=== PATIENT | male | born 1945 | race Native Hawaiian/Other Pacific Islander ===

== ENCOUNTER 2016-10-18 12:38 | Inpatient (IN) | payer MEDICARE, OTHER ==
[2016-10-18 12:38] VITALS: BMI 26.5
[2016-10-18] MEDS ORDERED: cefTRIAXone 1 gm 1 GM/100 ML BAG IVPB STA (13:37)
[2016-10-18] MEDS ORDERED: Azithromycin 500MG/NS 250ml 500 MG/250 ML BAG IVPB STA (13:38)
[2016-10-18 13:45] LABS: ADD MANUAL DIFF? NO
[2016-10-18 13:49] LABS: VENOUS BLOOD GAS BASE EXCESS -0.4 mmol/L (0.0-2.0); VENOUS BLOOD PH 7.34 (7.32-7.43)
--- NOTE | 2016-10-18 13:52 | ED PDOC ---
Arrival/HPI - General Chief Complaint: Shortness Of Breath Time Seen by Provider: 10/18/16 13:29 Historian: Patient - History of Present Illness Narrative History of Present Illness (Text): 10/18/16 14:10 A 71 year old male presents to the emergency department complaining of a productive cough for the past 3 days. Patient reports a fever of 102.7, shortness of breath and wheezing but denies chest pain or any other complaints at this time. Patient denies smoking or alcohol use. Patient seen by Dr. Daniel prior to arrival, who sent patient to emergency department. Time/Duration: Other (3 days) Symptom Onset: Sudden Symptom Course: Unchanged Activities at Onset: Rest Associated Symptoms (Text): fever, shortness of breath, wheezing 10/18/16 15:10 Several day history of a productive cough congestion and shortness of breath and fever to 103. Seen in the office today by and sent to the emergency department for evaluation and treatment and admission Past Medical History - Provider Review Nursing Documentation Reviewed: Yes - Infectious Disease Hx of Infectious Diseases: None - Cardiac Hx Cardiac Disorders: Yes Hx Hypertension: Yes - Pulmonary Hx Respiratory Disorders: No - Neurological Hx Neurological Disorder: No - HEENT Hx HEENT Disorder: No - Renal Hx Renal Disorder: No - Endocrine/Metabolic Hx Endocrine Disorders: Yes Hx Diabetes Mellitus Type 2: Yes - Hematological/Oncological Hx Blood Disorders: No - Integumentary Hx Dermatological Disorder: No - Musculoskeletal/Rheumatological Hx Musculoskeletal Disorders: Yes Hx Back Pain: Yes - Gastrointestinal Hx Gastrointestinal Disorders: Yes - Genitourinary/Gynecological Hx Genitourinary Disorders: No - Psychiatric Hx Psychophysiologic Disorder: No Hx Substance Use: No - Surgical History Other/Comment: SPINE SURGERY - Anesthesia Hx Anesthesia: Yes Hx Anesthesia Reactions: No Hx Malignant Hyperthermia: No Family/Social History - Physician Review Nursing Documentation Reviewed: Yes Family/Social History: No Known Family HX Smoking Status: Never Smoked Hx Alcohol Use: No Hx Substance Use: No Allergies/Home Meds Allergies/Adverse Reactions: Allergies aspirin Allergy (Verified 10/18/16 13:07) RASH Home Medications: Home Meds Medication Instructions Recorded Confirmed Atorvastatin [Lipitor] 1 tab PO DAILY 06/14/16 10/18/16 Fenofibrate,Micronized [Lofibra] 1 tab PO DAILY 06/14/16 10/18/16 Losartan [Cozaar] 1 tab PO DAILY 06/14/16 10/18/16 Pioglitazone [Actos] 1 tab PO DAILY 06/14/16 10/18/16 amLODIPine [Norvasc] 1 tab PO DAILY 06/14/16 10/18/16 Azithromycin [Zithromax] 250 mg PO DAILY 10/18/16 10/18/16 Fluticasone/Salmeterol 100/50 1 puff IH DAILY 10/18/16 10/18/16 [Advair Diskus 100/50] Montelukast [Singulair] 10 mg PO DAILY 10/18/16 10/18/16 Review of Systems - Physician Review All systems were reviewed & negative as marked: Yes - Review of Systems Constitutional: Fatigue, Fevers Respiratory: SOB, Cough, Sputum, Wheezing Cardiovascular: absent: Chest Pain, Palpitations, Syncope Gastrointestinal: absent: Abdominal Pain, Diarrhea, Vomiting Neurological: absent: Headache, Dizziness Physical Exam Vital Signs Reviewed: Yes Vital Signs Temp Pulse Resp BP Pulse Ox 10/18/16 16:36 95 H 18 118/70 99 10/18/16 15:00 102.1 F H 10/18/16 14:59 102.1 F H 102 H 19 127/57 L 98 10/18/16 13:58 18 94 L 10/18/16 13:52 102.7 F H 10/18/16 13:05 98.4 F 106 H 21 160/83 H 94 L Temperature: Afebrile Blood Pressure: Hypertensive Pulse: Tachycardic Respiratory Rate: Normal Appearance: Positive for: Well-Appearing, Non-Toxic, Uncomfortable Pain Distress: None Mental Status: Positive for: Alert and Oriented X 3 - Systems Exam Head: Present: Atraumatic, Normocephalic Pupils: Present: PERRL Extroacular Muscles: Present: EOMI Conjunctiva: Present: Normal Ears: Present: NORMAL TM, Normal Canal. No: Erythema Mouth: Present: Moist Mucous Membranes Pharnyx: No: ERYTHEMA, EXUDATE, TONSILS ENLARGED Neck: Present: Normal Range of Motion Respiratory/Chest: Present: Wheezes, Rales, Rhonchi. No: Tender to Palpation Cardiovascular: Present: Tachycardic Abdomen: Present: Normal Bowel Sounds. No: Tenderness, Distention, Peritoneal Signs, Rebound, Guarding Back: Present: Normal Inspection Upper Extremity: Present: Normal Inspection. No: Cyanosis, Edema Lower Extremity: Present: Normal Inspection. No: Edema Neurological: Present: GCS=15, CN II-XII Intact, Speech Normal, Motor Func Grossly Intact Skin: Present: Warm, Dry, Normal Color. No: Rashes Psychiatric: Present: Alert, Oriented x 3, Normal Insight, Normal Concentration Medical Decision Making ED Course and Treatment: 10/18/16 14:07 Impression: A 71 year old male with productive cough. Differential Diagnosis included but are not limited to: Plan: -- EKG -- chest xray -- labs -- Urinalysis -- Rocephin, Zithromax -- Reassess and disposition Progress Notes: chest xray: Creator : Faraz Nichols MD 10/18/2016 14:09:25 IMPRESSION: No active disease. 10/18/16 15:11 EKG shows sinus tachycardia rate approximately [address] or T-wave changes 10/18/16 15:[address] Daniel, who wants Dr. Herzog to admit patient. 10/18/16 15:[address] Herzog, who agrees and accepts patient under her service. - Lab Interpretations Lab Results: 10/18/16 13:15 10/18/16 13:15 Lab Results 10/18/16 13:15: Sodium 135, Chloride 96 L, Potassium 3.5 L, Carbon Dioxide 25, Anion Gap 18, BUN 11, Creatinine 0.9, Est GFR ( Amer) > 60, Est GFR (Non- Af Amer) > 60, Random Glucose 136 H, Calcium 9.9, Total Bilirubin 1.4 H, AST 54 , ALT 40, Alkaline Phosphatase 66, Lactate Dehydrogenase 528, Total Creatine Kinase 188, Troponin I < 0.01, NT-Pro-B Natriuret Pep 50.7, Total Protein 9.6 H , Albumin 4.9 H, Globulin 4.7, Albumin/Globulin Ratio 1.0 L 10/18/16 13:15: pO2 23 L, VBG pH 7.34, VBG pCO2 48.0, VBG HCO3 25.9, VBG Total CO2 27.4, VBG O2 Sat (Calc) 44.6, VBG Base Excess -0.4 L, VBG Potassium 3.4 L, Sodium 134.0, Chloride 102.0, Glucose 134 H, Lactate 1.5, FiO2 21.0, Venous Blood Potassium 3.4 L 10/18/16 13:15: PT 9.9, INR 0.92 L, APTT 38.2 H, D-Dimer, Quantitative 0.33 10/18/16 13:15: WBC 7.6, RBC 4.75, Hgb 15.4, Hct 43.3, MCV 91.2, MCH 32.4, MCHC 35.6, RDW 13.8, Plt Count 163, MPV 8.9, Gran % 64.0, Lymph % (Auto) 23.1, Kane % (Auto) 12.5 H, Eos % (Auto) 0.1 L, Baso % (Auto) 0.3, Gran # 4.88, Lymph # 1.8 , Kane # 1.0 H, Eos # 0.0, Baso # 0.02 I have reviewed the lab results: Yes - RAD Interpretation Radiology Orders: 10/18/16 13:37 CHEST PORTABLE [RAD] Stat - EKG Interpretation Interpreted by ED Physician: Yes Type: 12 lead EKG - Medication Orders Current Medication Orders: Acetaminophen (Tylenol 325mg Tab) 650 mg PO Q8H [facility] Last Admin: 10/18/16 18:45 Dose: 650 mg Albuterol/Ipratropium (Duoneb 3 Mg/0.5 Mg (3 Ml) Ud) 3 ml IH [id number] [facility] Last Admin: 10/18/16 19:00 Dose: 3 ml Amlodipine Besylate (Norvasc) 5 mg PO DAILY [facility] Atorvastatin Calcium (Lipitor) 10 mg PO DAILY [facility] Azithromycin (Zithromax 500mg In Ns) 500 mg in 250 mls @ 167 mls/hr IVPB DAILY [facility] PRN Reason: Protocol Insulin Human Lispro (Humalog Med) 0 units SC ACHS [facility] PRN Reason: Protocol Losartan Potassium (Cozaar) 50 mg PO DAILY [facility] Methylprednisolone (Solu-Medrol) 30 mg IV Q12 [facility] Montelukast Sodium (Singulair) 10 mg PO DAILY [facility] Last Admin: 10/18/16 18:46 Dose: 10 mg Pioglitazone HCl (Actos) 30 mg PO DAILY [facility] Discontinued Medications Acetaminophen (Tylenol 325mg Tab) Confirm Administered Dose 650 mg .ROUTE .STK- MED ONE Stop: 10/18/16 13:50 Last Admin: 10/18/16 13:52 Dose: 650 mg Re-Assess: MAR Pain/Vitals Document 10/18/16 15:00 [facility] (Rec: 10/18/16 16:08 [facility] [id number]) Vitals Temperature (97.6 F-99.6 F) 102.1 F Temperature Source Rectal Acetaminophen (Tylenol 325mg Tab) 650 mg PO STAT STA Stop: 10/18/16 15:15 Last Admin: 10/18/16 15:19 Dose: Acetaminophen (Tylenol 325mg Tab) 650 mg PO STAT ST[facility] Stop: 10/18/16 13:46 Last Admin: 10/18/16 15:26 Dose: Amlodipine Besylate (Norvasc) 5 mg PO STAT STA Stop: 10/18/16 18:32 Last Admin: 10/18/16 18:46 Dose: 5 mg Atorvastatin Calcium (Lipitor) 1 mg PO DAILY [facility] Ceftriaxone Sodium (Rocephin 1 Gram Ivpb) 1 gm in 100 mls @ 200 mls/hr IVPB STAT [facility] PRN Reason: Protocol Stop: 10/18/16 14:06 Last Admin: 10/18/16 13:52 Dose: 200 mls/hr Azithromycin (Zithromax 500mg In Ns) 500 mg in 250 mls @ 167 mls/hr IVPB STAT [facility] PRN Reason: Protocol Stop: 10/18/16 15:07 Last Admin: 10/18/16 15:17 Dose: 167 mls/hr Losartan Potassium (Cozaar) 1 mg PO DAILY [facility] Pioglitazone HCl (Actos) 1 mg PO DAILY [facility] Potassium Chloride (Klor-Con 10) 10 meq PO STAT STA Stop: 10/18/16 15:55 Last Admin: 10/18/16 16:03 Dose: 10 meq - Scribe Statement The provider has reviewed the documentation as recorded by the Prince Brandt Provider Scribe Attestation: All medical record entries made by the Scribe were at my direction and personally dictated by me. I have reviewed the chart and agree that the record accurately reflects my personal performance of the history, physical exam, medical decision making, and the department course for this patient. I have also personally directed, reviewed, and agree with the discharge instructions and disposition. Disposition/Present on Arrival - Present on Arrival Any Indicators Present on Arrival: No History of DVT/PE: No History of Uncontrolled Diabetes: No Urinary Catheter: No History of Decub. Ulcer: No History Surgical Site Infection Following: None - Disposition Have Diagnosis and Disposition been Completed?: Yes Diagnosis: Fever, Dyspnea, Pneumonia Disposition: HOSPITALIZED Disposition Time: 15:20 Patient Plan: Observation Patient Problems: Current Active Problems Problem Status Onset Dyspnea Acute Fever Acute Pneumonia Acute Condition: FAIR
[2016-10-18 13:56] LABS: BASO # 0.02 K/mm3 (0.0-2.0); BASO % 0.3 % (0.0-3.0); EOS % 0.1 % (1.5-5.0); GRAN # 4.88 (1.4-6.5); HEMATOCRIT 43.3 % (42.0-52.0); LYMPH # 1.8 (1.2-3.4); LYMPH % 23.1 % (22.0-35.0); MEAN CELL VOLUME 91.2 fL (80.0-105.0); MEAN CORPUSCULAR HEMOGLOBIN 32.4 pg (25.0-35.0); MEAN CORPUSCULAR HGB CONC 35.6 g/dl (31.0-37.0); MEAN PLATELET VOLUME 8.9 fl (7.0-11.0); MONO % 12.5 % (1.0-6.0); PLATELET COUNT 163 10^3/uL (120.0-450.0); RED CELL DISTRIBUTION WIDTH 13.8 % (11.5-14.5); WHITE BLOOD COUNT 7.6 10^3/ul (4.5-11.0)
[2016-10-18 14:01] LABS: ALKALINE PHOSPHATASE 66 U/L (38-133); ALT/SGPT 40 U/L (7-56); AST/SGOT 54 U/L (15-59); BILIRUBIN,TOTAL 1.4 mg/dL (0.2-1.3); BLOOD UREA NITROGEN 11 mg/dL (7-21); CALCIUM 9.9 mg/dL (8.4-10.5); CARBON DIOXIDE 25 mmol/L (21-33); CHLORIDE 96 mmol/L (98-107); GFR AFRICAN-AMERICAN > 60; GLUCOSE,RANDOM 136 mg/dL (70-110); POTASSIUM 3.5 mmol/L (3.6-5.0); SODIUM 135 mmol/L (132-148); TOTAL PROTEIN 9.6 g/dL (5.8-8.3)
[2016-10-18 14:11] LABS: INR 0.92 (0.93-1.08); PARTIAL THROMBOPLASTIN TIME 38.2 Seconds (23.7-30.8); TROPONIN I < 0.01 ng/mL
--- NOTE | 2016-10-18 14:11 | RAD ---
HISTORY: sob COMPARISON: 04/03/2015 FINDINGS: LUNGS: No active pulmonary disease. PLEURA: No significant pleural effusion identified, no pneumothorax apparent. CARDIOVASCULAR: Normal. OSSEOUS STRUCTURES: No significant abnormalities. VISUALIZED UPPER ABDOMEN: Normal. OTHER FINDINGS: None. IMPRESSION: No active disease.
[2016-10-18 14:12] LABS: D DIMER 0.33 mg/L FEU (0-0.50)
[2016-10-18] MEDS ORDERED: Potassium Chloride 10 mEq ER Tab PO STA (15:54)
[2016-10-18] MEDS: Albuterol-Ipratrop 3 mg / 0.5 (3 ml) UD IH SCH (19:00)
--- NOTE | 2016-10-18 21:04 | CT ---
EXAM: CT Chest Without Intravenous Contrast CLINICAL HISTORY: 71 years old, male; Signs and symptoms; Dyspnea; Additional info: SOB TECHNIQUE: Axial computed tomography images of the chest without intravenous contrast. This CT exam was performed using one or more of the following dose reduction techniques: automated exposure control, adjustment of the mA and/or kV according to patient size, and/or use of iterative reconstruction technique. MIP reconstructed images were created and reviewed. Coronal and sagittal reformatted images were created and reviewed. EXAM DATE/TIME: 10/18/2016 7:00 PM COMPARISON: DX - CHEST PORTABLE 10/18/2016 1:43:55 PM FINDINGS: Artifacts: Motion artifact degrades image quality. Lungs and pleural spaces: Trachea and main bronchi are patent. There is apical scarring right greater than left. There are tree in bud opacities in the right upper lobe. Left upper lobe is clear. There is bronchiectasis and scarring in the right middle lobe and both lower lobes. There is airspace disease at the both lung bases. There are no effusions. Heart and vasculature: Heart size is normal. There are coronary artery calcifications. There is trace fluid in pericardial recesses. Aorta and main pulmonary artery are normal in caliber. Mediastinum: Esophagus is unremarkable. There is a small hiatal hernia. There are shotty mediastinal nodes. There is a mildly prominent right hilar node.Angelina are not optimally evaluated without contrast material. Thyroid: Thyroid is not optimally demonstrated. Bones/joints: There are degenerative changes in the osseus structures. Soft tissues: unremarkable Upper abdomen: There are no acute abnormalities in the visualized portion of the abdomen. IMPRESSION: Bilateral lower lobe airspace disease right greater than left; basilar bronchiectasis; tree in bud opacities in the right upper lobe, infectious/inflammatory versus neoplastic; shoddy adenopathy; atherosclerotic disease Additional findings as described above.
[2016-10-18] MEDS: MethylPREDNISolone 40 mg Vial IV SCH (21:38)
[2016-10-18] MEDS: Insulin Lispro (humaLOG) MEDIUM Coverage SC SCH (21:38)
[2016-10-18] MEDS: Albuterol-Ipratrop 3 mg / 0.5 (3 ml) UD IH PRN (22:38)
--- NOTE | 2016-10-19 02:06 | CARD ---
APPROVED REPORT EKG Measurement Heart [id number] <Conclusion> Sinus tachycardia Otherwise normal ECG
[2016-10-19] MEDS: Albuterol-Ipratrop 3 mg / 0.5 (3 ml) UD IH SCH ×4 (02:26→19:20)
[2016-10-19 06:54] LABS: ADD MANUAL DIFF? NO
[2016-10-19 07:11] LABS: BASO # 0.01 K/mm3 (0.0-2.0); BASO % 0.1 % (0.0-3.0); GRAN % 85.7 % (50.0-68.0); HEMATOCRIT 37.2 % (42.0-52.0); LYMPH # 0.7 (1.2-3.4); LYMPH % 8.8 % (22.0-35.0); MEAN CELL VOLUME 90.3 fL (80.0-105.0); MEAN CORPUSCULAR HEMOGLOBIN 31.3 pg (25.0-35.0); MEAN CORPUSCULAR HGB CONC 34.7 g/dl (31.0-37.0); MEAN PLATELET VOLUME 8.4 fl (7.0-11.0); MONO # 0.4 (0.1-0.6); MONO % 5.4 % (1.0-6.0); PLATELET COUNT 160 10^3/uL (120.0-450.0); RED CELL DISTRIBUTION WIDTH 13.7 % (11.5-14.5); WHITE BLOOD COUNT 7.4 10^3/ul (4.5-11.0)
[2016-10-19 07:12] LABS: ALB/GLOB RATIO 1.1 (1.1-1.8); ALKALINE PHOSPHATASE 49 U/L (38-133); ALT/SGPT 49 U/L (7-56); AST/SGOT 60 U/L (15-59); BILIRUBIN,TOTAL 0.9 mg/dL (0.2-1.3); BLOOD UREA NITROGEN 14 mg/dL (7-21); CARBON DIOXIDE 24 mmol/L (21-33); CHLORIDE 103 mmol/L (98-107); GFR AFRICAN-AMERICAN > 60; GLUCOSE,RANDOM 182 mg/dL (70-110); MAGNESIUM 2.3 mg/dL (1.7-2.2); POTASSIUM 3.9 mmol/L (3.6-5.0); SODIUM 139 mmol/L (132-148); TOTAL PROTEIN 7.9 g/dL (5.8-8.3)
[2016-10-19 07:27] LABS: FREE T4 1.37 ng/dL (0.78-2.19)
[2016-10-19 07:41] LABS: THYROID STIMULATING HORMONE 0.32 mIU/mL (0.46-4.68)
--- NOTE | 2016-10-19 07:59 | HP ---
HISTORY OF PRESENT ILLNESS: The patient is a 71-year-old patient of Dr. Daniel. He was seen by Dr. Johnny thapa today earlier. Had a high grade fever. He has been having cough, congestion going on for a few d ays. The cough is productive. He had fever of 101 at home associated shortness of breath. He had a udible wheezing. Does not have any chest pain. No history of nausea or vomiting. Did not have any sick contacts. When he was seen by Dr. Daniel, since he had high grade fever he advised him to come to Emergency Room. PAST MEDICAL HISTORY: Significant for: 1. Hypertension. 2. Hyperlipidemia. 3. Rxn-hqsfhie-mskysbtip diabetes. ALLERGIES: HE IS ALLERGIC TO ASPIRIN. MEDICATIONS AT HOME: He is on Singulair 10 mg daily, Advair, Zithromax 250 daily, amlodipine 10 mg d aily, Actos 30 mg daily, losartan 50 mg daily, fenofibrate and atorvastatin. SOCIAL HISTORY: Denies smoking, ____ or ____ use. REVIEW OF SYSTEMS: Significant for decreased appetite, cough, congestion, wheezing. PHYSICAL EXAMINATION: GENERAL: He is awake and alert, communicative. VITAL SIGNS: He has temperature of 102, pulse 95, respirations 18, blood pressure 118/70. LUNGS: Bilateral expiratory rhonchi. HEART: S1, S2 audible. ABDOMEN: Soft, nontender, no rebound, no guarding. NEUROLOGIC: The patient is awake and alert, communicative, ambulatory. LABORATORY DATA: WBC 7.6, hemoglobin 15, hematocrit 43, and platelets 163. PT 9.9, INR 0.92, PTT 38 .2. Chemistry: Sodium 135, potassium 3.5, chloride 96, CO2 25, BUN 11, creatinine 0.9, blood sugar 136. Total bilirubin 1.4, total protein 9.6, albumin 4.9. X-ray chest done today shows no active di sease. ASSESSMENT: 1. Asthmatic bronchitis. 2. High-grade fever with a fever of 102. 3. Hyperlipidemia. 4. Hypertension. PLAN: Blood culture and urine cultures are sent. Will start patient on IV antibiotic, nebulizer jeannie atment, start him on small dose of steroids. Will monitor his blood sugar. Will reevaluate this pat ient in the a.m. Sorin Herzog MD cc: [phone] TT: 10/18/2016 19:10:51 [facility] # [id number] in 10/19/2016 06:58:03
[2016-10-19] MEDS: Insulin Lispro (humaLOG) MEDIUM Coverage SC SCH ×4 (08:20→21:25)
[2016-10-19] MEDS: MethylPREDNISolone 40 mg Vial IV SCH ×2 (09:23→21:10)
[2016-10-19] MEDS: Azithromycin 500MG/NS 250ml 500 MG/250 ML BAG IVPB SCH (09:24)
[2016-10-19] MEDS: Albuterol-Ipratrop 3 mg / 0.5 (3 ml) UD IH PRN ×2 (11:04→23:23)
--- NOTE | 2016-10-19 12:24 | PN ---
DATE: 10/19/2016 The patient is a 71-year-old, seen and examined, states he feels better. His appetite is coming back . He still has cough, congestion and wheezing. PHYSICAL EXAMINATION: VITAL SIGNS: He is afebrile, pulse 79, respirations 20, blood pressure 118/74. LUNGS: Bilateral soft crackle and rhonchi, diffuse. HEART: S1, S2 audible. ABDOMEN: Soft, nontender, no rebound, no guarding. NEUROLOGIC: He is awake and alert, communicative. Moves all extremities. LABORATORY EXAMINATION: WBC 7.4, hemoglobin 12.9, hematocrit 37.2, platelet of 160. Chemistry: Sod ium 139, potassium 3.9, chloride 103, CO2 24, BUN 14, creatinine 0.7, blood sugar of 182. CT scan of the chest was done that shows bilateral lower lobe infiltrates, right more than the left, basilar bronchiectasis with tree-in-bud opacities in the right upper lobe, infectious versus inflamma tory process. ASSESSMENT: 1. Community-acquired pneumonia. 2. Non-insulin dependent diabetes. 3. Hypertension. 4. Hyperlipidemia. 5. History of smoking. PLAN: We will continue patient on Zithromax and Rocephin. I will continue him on Cozaar, nebulizer treatment and since he has . Out of bed to chair, encourage ambulation. Will reevaluate patien t in a.m. Sorin Herzog MD cc: [phone] TT: 10/19/2016 12:23:20 Confirmation # [id number] Dictation # [id number]
[2016-10-19] MEDS: cefTRIAXone 1 gm 1 GM/100 ML BAG IVPB SCH (13:12)
--- NOTE | 2016-10-19 23:47 | CP.PCM.PN ---
Subjective - Date & Time of Evaluation Date of Evaluation: 10/19/16 Time of Evaluation: 23:46 - Subjective Subjective: S:Patient was seen because sleeping pill was requested. States that he can not sleep. Has no other complaints now. Denies chest pain, sob. Medical record was reviewed. O:VSS. Alert,oriented ,not in distress. LUNGS:Normal breathing pattern. NEURO:Speech normal. A:Adjustment insomnia. P:Benadryl 25 mg PO x 1. Objective - Vital Signs/Intake and Output Vital Signs (last 24 hours): Temp Pulse Resp BP Pulse Ox 99.8 F H 77 18 107/60 98 10/19/16 23:13 10/19/16 16:00 10/19/16 16:00 10/19/16 16:00 10/19/16 16:00 Intake and Output: 10/19/16 10/20/16 18:59 06:59 Intake Total 600 840 Output Total 400 750 Balance 200 90 - Medications Medications: Current Medications Acetaminophen (Tylenol 325mg Tab) 650 mg PO Q6H [facility] Last Admin: 10/19/16 23:13 Dose: 650 mg Albuterol/Ipratropium (Duoneb 3 Mg/0.5 Mg (3 Ml) Ud) 3 ml IH [id number] [facility] Last Admin: 10/19/16 19:20 Dose: 3 ml Albuterol/Ipratropium (Duoneb 3 Mg/0.5 Mg (3 Ml) Ud) 3 ml IH Q2H PRN PRN Reason: Shortness of Breath Last Admin: 10/19/16 23:23 Dose: 3 ml Amlodipine Besylate (Norvasc) 5 mg PO DAILY [facility] Last Admin: 10/19/16 09:20 Dose: 5 mg Atorvastatin Calcium (Lipitor) 10 mg PO DAILY [facility] Last Admin: 10/19/16 09:19 Dose: 10 mg Azithromycin (Zithromax 500mg In Ns) 500 mg in 250 mls @ 167 mls/hr IVPB DAILY [facility] PRN Reason: Protocol Last Admin: 10/19/16 09:24 Dose: 167 mls/hr Ceftriaxone Sodium (Rocephin 1 Gram Ivpb) 1 gm in 100 mls @ 100 mls/hr IVPB DAILY [facility] PRN Reason: Protocol Last Admin: 10/19/16 13:12 Dose: 100 mls/hr Insulin Human Lispro (Humalog Med) 0 units SC ACHS [facility] PRN Reason: Protocol Last Admin: 10/19/16 21:25 Dose: Not Given Losartan Potassium (Cozaar) 50 mg PO DAILY [facility] Last Admin: 10/19/16 09:22 Dose: 50 mg Methylprednisolone (Solu-Medrol) 30 mg IV Q12 [facility] Last Admin: 10/19/16 21:10 Dose: 30 mg Montelukast Sodium (Singulair) 10 mg PO DAILY [facility] Last Admin: 10/19/16 09:19 Dose: 10 mg Pioglitazone HCl (Actos) 30 mg PO DAILY [facility] Last Admin: 10/19/16 09:22 Dose: 30 mg - Labs Labs: 10/19/16 06:30 10/19/16 06:30 PT 9.9 Seconds (9.9-11.8) 10/18/16 13:15 INR 0.92 (0.93-1.08) L 10/18/16 13:15 APTT 38.2 Seconds (23.7-30.8) H 10/18/16 13:15
[2016-10-20] MEDS: Albuterol-Ipratrop 3 mg / 0.5 (3 ml) UD IH SCH ×4 (01:08→19:38)
[2016-10-20] MEDS: Insulin Lispro (humaLOG) MEDIUM Coverage SC SCH ×4 (09:27→23:06)
[2016-10-20] MEDS: MethylPREDNISolone 40 mg Vial IV SCH ×3 (09:28→23:52)
[2016-10-20] MEDS: Azithromycin 500MG/NS 250ml 500 MG/250 ML BAG IVPB SCH (09:33)
[2016-10-20] MEDS: cefTRIAXone 1 gm 1 GM/100 ML BAG IVPB SCH (11:00)
[2016-10-20] MEDS: Albuterol-Ipratrop 3 mg / 0.5 (3 ml) UD IH PRN ×2 (11:24→17:12)
--- NOTE | 2016-10-20 12:42 | PN ---
DATE: 10/20/2016 The patient is a 71-year-old, seen and examined, lying in bed, still has cough, congestion, shortness of breath. He states his intake is better now. PHYSICAL EXAMINATION: VITAL SIGNS: He is afebrile, pulse 85, respirations 20, blood pressure 118/67. LUNGS: Bilateral expiratory rhonchi. HEART: S1, S2 audible. ABDOMEN: Soft, nontender, no rebound, no guarding. NEUROLOGIC: The patient is awake and alert, able to communicate. EXTREMITIES: Bilateral legs, no edema. LABORATORY EXAM: WBC 7.4, hemoglobin 12.9, hematocrit 37.2, platelet 160. Chemistry: Blood sugar i s 178. Blood culture and sputum cultures are negative. CT scan shows bilateral alveolar infiltrates in the lower lobes, right greater than the left, and basilar bronchiectasis. ASSESSMENT: 1. Community-acquired pneumonia, failed outpatient treatment. 2. Non-insulin dependent diabetes. 3. Hypertension. 4. Hyperlipidemia. 5. Asthmatic bronchitis. PLAN: The patient is currently on Rocephin. I will increase his steroid to 30 q. 8 hours and we ernesto l continue him on with Zithromax. I will request for ID evaluation. Will increase his steroid to 40 q. 6, monitor his blood sugar. Request for ID evaluation has been placed. We will re-evaluate this patient in a.m. Sorin Herzog MD cc: [phone] TT: 10/20/2016 12:41:53 Confirmation # [id number] Dictation # [id number]
[2016-10-21] MEDS: Albuterol-Ipratrop 3 mg / 0.5 (3 ml) UD IH SCH (20:22)
[2016-10-21] MEDS: Insulin Lispro (humaLOG) MEDIUM Coverage SC SCH (22:43)
[2016-10-21] MEDS: MethylPREDNISolone 40 mg Vial IV SCH (23:59)
[2016-10-22] MEDS: Albuterol-Ipratrop 3 mg / 0.5 (3 ml) UD IH SCH ×4 (01:20→20:05)
[2016-10-22] MEDS: MethylPREDNISolone 40 mg Vial IV SCH ×4 (05:36→23:53)
[2016-10-22] MEDS: Insulin Lispro (humaLOG) MEDIUM Coverage SC SCH ×4 (07:56→22:05)
[2016-10-22] MEDS: cefTRIAXone 1 gm 1 GM/100 ML BAG IVPB SCH (09:25)
[2016-10-22] MEDS: Azithromycin 500MG/NS 250ml 500 MG/250 ML BAG IVPB SCH (09:26)
[2016-10-22 13:05] LABS: BLOOD UREA NITROGEN 20 mg/dL (7-21); CARBON DIOXIDE 24 mmol/L (21-33); CHLORIDE 104 mmol/L (98-107); GFR AFRICAN-AMERICAN > 60; GLUCOSE,RANDOM 190 mg/dL (70-110); POTASSIUM 3.9 mmol/L (3.6-5.0); SODIUM 141 mmol/L (132-148)
[2016-10-22 13:06] LABS: ALKALINE PHOSPHATASE 96 U/L (38-133); ALT/SGPT 206 U/L (7-56); AST/SGOT 172 U/L (15-59); BILIRUBIN,TOTAL 0.7 mg/dL (0.2-1.3); CALCIUM 9.2 mg/dL (8.4-10.5); TOTAL PROTEIN 7.7 g/dL (5.8-8.3)
[2016-10-22 16:22] LABS: HEMATOCRIT 35.9 % (42.0-52.0); MEAN CELL VOLUME 90.4 fL (80.0-105.0); MEAN CORPUSCULAR HEMOGLOBIN 31.7 pg (25.0-35.0); MEAN CORPUSCULAR HGB CONC 35.1 g/dl (31.0-37.0); MEAN PLATELET VOLUME 8.7 fl (7.0-11.0); WHITE BLOOD COUNT 13.2 10^3/ul (4.5-11.0)
--- NOTE | 2016-10-22 20:38 | CP.PCM.CON ---
History of Present Illness - History of Present Illness History of Present Illness: 71 year old male with PMH of DM, chronic back pain, S/P spine surgery, HTN, dyslipidemia, asthmatic bronchitis came in to [facility] complaining of cough productive of yellowish phlegm associated with fever for 3 days prior to admission. The patient was also complaining of some shortness of breath and wheezing. He denies headache or dizziness, no chest pain, no nausea or vomiting, no sore throat, no abdominal pain, no diarrhea, no hematuria, no dysuria. He has been started on Rocephin and Zithromax with improvement in color of phlegm, but still has occasional shortness of breath and wheezing. Infectious Diseases consult is requested to further evaluate and manage. Review of Systems - Review of Systems All systems: reviewed and no additional remarkable complaints except (as per HPI ) Past Patient History - Infectious Disease Hx of Infectious Diseases: None - Past Medical History & Family History Past Medical History?: Yes - Past Social History Smoking Status: Never Smoked - CARDIAC Hx Cardiac Disorders: Yes Hx Hypertension: Yes - PULMONARY Hx Respiratory Disorders: No - NEUROLOGICAL Hx Neurological Disorder: No - HEENT Hx HEENT Problems: No - RENAL Hx Chronic Kidney Disease: No - ENDOCRINE/METABOLIC Hx Diabetes Mellitus Type 2: Yes - HEMATOLOGICAL/ONCOLOGICAL Hx Blood Disorders: No - INTEGUMENTARY Hx Dermatological Problems: No - MUSCULOSKELETAL/RHEUMATOLOGICAL Hx Musculoskeletal Disorders: Yes Hx Back Pain: Yes - GASTROINTESTINAL Hx Gastrointestinal Disorders: Yes - GENITOURINARY/GYNECOLOGICAL Hx Genitourinary Disorders: No - PSYCHIATRIC Hx Psychophysiologic Disorder: No Hx Substance Use: No - SURGICAL HISTORY Other/Comment: SPINE SURGERY - ANESTHESIA Hx Anesthesia: Yes Hx Anesthesia Reactions: No Hx Malignant Hyperthermia: No Meds Allergies/Adverse Reactions: Allergies Allergy/AdvReac Type Severity Reaction Status Date / Time aspirin Allergy RASH Verified 10/18/16 13:07 - Medications Medications: Current Medications Acetaminophen (Tylenol 325mg Tab) 650 mg PO Q6H [facility] Last Admin: 10/20/16 17:12 Dose: 650 mg Albuterol/Ipratropium (Duoneb 3 Mg/0.5 Mg (3 Ml) Ud) 3 ml IH [id number] [facility] Last Admin: 10/20/16 19:38 Dose: 3 ml Albuterol/Ipratropium (Duoneb 3 Mg/0.5 Mg (3 Ml) Ud) 3 ml IH Q2H PRN PRN Reason: Shortness of Breath Last Admin: 10/20/16 17:12 Dose: 3 ml Amlodipine Besylate (Norvasc) 5 mg PO DAILY [facility] Last Admin: 10/20/16 09:27 Dose: 5 mg Atorvastatin Calcium (Lipitor) 10 mg PO DAILY [facility] Last Admin: 10/20/16 09:28 Dose: 10 mg Azithromycin (Zithromax 500mg In Ns) 500 mg in 250 mls @ 167 mls/hr IVPB DAILY [facility] PRN Reason: Protocol Last Admin: 10/20/16 09:33 Dose: 167 mls/hr Ceftriaxone Sodium (Rocephin 1 Gram Ivpb) 1 gm in 100 mls @ 100 mls/hr IVPB DAILY [facility] PRN Reason: Protocol Last Admin: 10/20/16 11:00 Dose: 100 mls/hr Insulin Human Lispro (Humalog Med) 0 units SC ACHS [facility] PRN Reason: Protocol Last Admin: 10/20/16 16:40 Dose: 5 units Losartan Potassium (Cozaar) 50 mg PO DAILY [facility] Last Admin: 10/20/16 09:28 Dose: 50 mg Methylprednisolone (Solu-Medrol) 40 mg IV Q6 [facility] Last Admin: 10/20/16 17:20 Dose: 40 mg Montelukast Sodium (Singulair) 10 mg PO DAILY [facility] Last Admin: 10/20/16 09:27 Dose: 10 mg Pioglitazone HCl (Actos) 30 mg PO DAILY [facility] Last Admin: 10/20/16 09:32 Dose: 30 mg Physical Exam - Constitutional Appears: Non-toxic, No Acute Distress - Head Exam Head Exam: NORMAL INSPECTION - ENT Exam ENT Exam: Mucous Membranes Moist - Neck Exam Neck exam: Negative for: Lymphadenopathy, Meningismus - Respiratory Exam Respiratory Exam: Decreased Breath Sounds, Rales (scattered), Wheezes (diffuse, expiratory) - Cardiovascular Exam Cardiovascular Exam: +S1, +S2 - GI/Abdominal Exam GI & Abdominal Exam: Soft. absent: Tenderness Results - Vital Signs Recent Vital Signs: Last Vital Signs Temp 98.5 F 10/20/16 17:12 Pulse 76 10/20/16 16:00 Resp 18 10/20/16 16:00 BP 106/64 10/20/16 16:00 Pulse Ox 98 10/20/16 16:00 - Labs Result Diagrams: 10/21/16 07:00 10/21/16 07:00 Labs: Laboratory Results - last 24 hr 10/19/16 10/19/16 10/19/16 07:17 11:05 15:32 POC Glucose (mg/dL) 180 H 268 H 238 H 10/19/16 10/20/16 10/20/16 21:21 07:20 11:37 POC Glucose (mg/dL) 198 H 229 H 178 H Assessment & Plan - Assessment and Plan (Free Text) Plan: Assessment Bilateral lower lobe community-acquired pneumonia with asthmatic bronchitis, slowly improving DM chronic back pain S/P spine surgery HTN dyslipidemia Plan Continue Rocephin and Zithromax (day 3) to complete a 5-7 day course; PCT is 0.23 Patient will continue benefitting from systemic steroids, nebulizer treatments Will continue to monitor clinically
--- NOTE | 2016-10-22 20:54 | PN ---
DATE: 10/22/2016 SUBJECTIVE: The patient has no complaints of any chest pain, no shortness of breath, no headaches or dizziness. PHYSICAL EXAMINATION: VITAL SIGNS: Temperature is 98.2, pulse of 86, blood pressure 128/73, respirations 18. GENERAL: The patient comfortable, in no acute distress. HEENT: Anicteric sclerae. Moist mucosa. NECK: No JVD or adenopathy. CARDIAC: S1/S2. No murmurs. No rubs. Regular. RESPIRATORY: Clear to auscultation bilaterally. No wheezes, rales, or rhonchi. Good air entry. ABDOMEN: Bowel sounds are positive, soft, nontender, and nondistended. EXTREMITIES: No edema. Has 1+ pulses. LABS: White count of 13.2, hemoglobin 12.6, creatinine 0.7. ASSESSMENT: 1. Community-acquired pneumonia. 2. Diabetes type 2. 3. Hypertension. 4. Dyslipidemia. 5. Bronchitis. PLAN: The patient is currently comfortable. Blood cultures have been negative. He is receiving Act os for his diabetes. He is on Cozaar for his hypertension. He is on Norvasc for his hypertension as well. He is on Lipitor for dyslipidemia. He is on Singulair. The patient is on a heart healthy di et. He is being followed by Dr. Dietrich from [place]. We will repeat the patient's blood work tomorrow. Aj Diaz MD cc: [id number] TT: 10/22/2016 20:53:44 Confirmation # [id number] Dictation # [id number] [email or web address]
[2016-10-23] MEDS: Albuterol-Ipratrop 3 mg / 0.5 (3 ml) UD IH SCH ×4 (02:40→20:00)
[2016-10-23] MEDS: MethylPREDNISolone 40 mg Vial IV SCH ×4 (05:14→22:18)
[2016-10-23 07:15] LABS: HEMATOCRIT 35.3 % (42.0-52.0); MEAN CELL VOLUME 86.5 fL (80.0-105.0); MEAN CORPUSCULAR HEMOGLOBIN 29.4 pg (25.0-35.0); MEAN PLATELET VOLUME 11.3 fl (7.0-11.0); RED CELL DISTRIBUTION WIDTH 14.3 % (11.5-14.5)
[2016-10-23] MEDS: Insulin Lispro (humaLOG) MEDIUM Coverage SC SCH ×4 (07:30→22:37)
[2016-10-23] MEDS: cefTRIAXone 1 gm 1 GM/100 ML BAG IVPB SCH (10:00)
[2016-10-23] MEDS: Azithromycin 500MG/NS 250ml 500 MG/250 ML BAG IVPB SCH (10:10)
[2016-10-23 10:24] LABS: ALB/GLOB RATIO 1.2 (1.1-1.8); ALKALINE PHOSPHATASE 74 U/L (38-133); ALT/SGPT 178 U/L (7-56); AST/SGOT 69 U/L (15-59); BILIRUBIN,TOTAL 0.9 mg/dL (0.2-1.3); BLOOD UREA NITROGEN 19 mg/dL (7-21); CALCIUM 9.4 mg/dL (8.4-10.5); CARBON DIOXIDE 25 mmol/L (21-33); CHLORIDE 99 mmol/L (95-110); GFR AFRICAN-AMERICAN > 60; GLUCOSE,RANDOM 184 mg/dL (70-110); POTASSIUM 3.6 mmol/L (3.6-5.0); SODIUM 139 mmol/L (132-148); TOTAL PROTEIN 8.1 g/dL (5.8-8.3)
[2016-10-23] MEDS: guaiFENesin DM 100 mg-10 mg/5 ml UD PO PRN (18:30)
[2016-10-23] MEDS: Albuterol-Ipratrop 3 mg / 0.5 (3 ml) UD IH PRN ×2 (18:37→23:23)
--- NOTE | 2016-10-23 18:54 | PN ---
DATE: 10/23/2016 SUBJECTIVE: The patient is a 71-year-old, seen and examined, lying in bed, complained of generalized weakness. The cough seems to be a little better. No fever, no chills. PHYSICAL EXAMINATION: VITAL SIGNS: He is afebrile, pulse 74, respirations 21, blood pressure 135/71. LUNGS: Bilateral fair airflow, no rhonchi or crackle. HEART: S1, S2 audible. ABDOMEN: Soft, obese, nontender, no rebound, no guarding. NEUROLOGIC: He is awake and alert, communicative. LABORATORY EXAMINATION: WBC is 11, hemoglobin 12.0, hematocrit 35.3, platelets 179. Chemistry: Sod ium 139, potassium 3.6, chloride 99, CO2 of 25, BUN 19, creatinine 0.8, blood sugar 184, AST 69, ALT 178. ASSESSMENT AND PLAN: 1. Community-acquired pneumonia. 2. Multilobar bilateral lower lobe infiltrate with bronchiectasis. 3. History of chronic obstructive pulmonary disease. 4. Non-insulin dependent diabetes. 5. Morbid obesity. 6. History of smoking in the past. PLAN: We will continue the patient on losartan, nebulizer treatment and start Januvia. Continue on IV Rocephin and cut down steroids to q. 8. Continue on Azactam. I will request for TCU evaluation. If accepted, he can be transferred to TCU to complete his course of antibiotic and close monitoring of his respiratory status. Sorin Herzog MD cc: [phone] TT: 10/23/2016 18:53:13 Confirmation # [id number] Dictation # [id number]
--- NOTE | 2016-10-23 19:00 | CP.PCM.PN ---
Subjective - Date & Time of Evaluation Date of Evaluation: 10/23/16 Time of Evaluation: 08:40 - Subjective Subjective: Comfortable, less cough, no nausea, less shortness of breath. No fevers overnight. Objective - Vital Signs/Intake and Output Vital Signs (last 24 hours): Temp Pulse Resp BP Pulse Ox 98.3 F 74 21 135/71 95 10/23/16 07:28 10/23/16 10:05 10/23/16 07:28 10/23/16 10:05 10/23/16 07:28 Intake and Output: 10/23/16 10/23/16 06:59 18:59 Intake Total 900 1160 Output Total 900 Balance 0 1160 - Medications Medications: Current Medications Acetaminophen (Tylenol 325mg Tab) 650 mg PO Q6H [facility] Last Admin: 10/23/16 18:30 Dose: 650 mg Albuterol/Ipratropium (Duoneb 3 Mg/0.5 Mg (3 Ml) Ud) 3 ml IH [id number] [facility] Last Admin: 10/23/16 13:52 Dose: 3 ml Albuterol/Ipratropium (Duoneb 3 Mg/0.5 Mg (3 Ml) Ud) 3 ml IH Q2H PRN PRN Reason: Shortness of Breath Last Admin: 10/23/16 18:37 Dose: 3 ml Amlodipine Besylate (Norvasc) 5 mg PO DAILY [facility] Last Admin: 10/23/16 10:05 Dose: 5 mg Atorvastatin Calcium (Lipitor) 10 mg PO DAILY [facility] Last Admin: 10/23/16 10:05 Dose: 10 mg Guaifenesin/Dextromethorphan (Robitussin Dm) 5 ml PO Q6H PRN PRN Reason: Cough Last Admin: 10/23/16 18:30 Dose: 5 ml Azithromycin (Zithromax 500mg In Ns) 500 mg in 250 mls @ 167 mls/hr IVPB DAILY [facility] PRN Reason: Protocol Last Admin: 10/23/16 10:10 Dose: 167 mls/hr Ceftriaxone Sodium (Rocephin 1 Gram Ivpb) 1 gm in 100 mls @ 100 mls/hr IVPB DAILY [facility] PRN Reason: Protocol Last Admin: 10/23/16 10:00 Dose: 100 mls/hr Insulin Human Lispro (Humalog Med) 0 units SC ACHS [facility] PRN Reason: Protocol Last Admin: 10/23/16 18:21 Dose: 5 units Losartan Potassium (Cozaar) 50 mg PO DAILY [facility] Last Admin: 10/23/16 10:03 Dose: 50 mg Methylprednisolone (Solu-Medrol) 40 mg IV Q8 [facility] Last Admin: 10/23/16 18:31 Dose: 40 mg Montelukast Sodium (Singulair) 10 mg PO DAILY [facility] Last Admin: 10/23/16 10:05 Dose: 10 mg Sitagliptin Phosphate (Januvia) 100 mg PO DAILY [facility] Last Admin: 10/23/16 18:31 Dose: 100 mg - Labs Labs: 10/23/16 07:03 10/23/16 09:50 PT 9.9 Seconds (9.9-11.8) 10/18/16 13:15 INR 0.92 (0.93-1.08) L 10/18/16 13:15 APTT 38.2 Seconds (23.7-30.8) H 10/18/16 13:15 - Constitutional Appears: Non-toxic, No Acute Distress - Head Exam Head Exam: NORMAL INSPECTION - ENT Exam ENT Exam: Mucous Membranes Moist - Neck Exam Neck Exam: absent: Lymphadenopathy, Meningismus - Respiratory Exam Respiratory Exam: Decreased Breath Sounds - Cardiovascular Exam Cardiovascular Exam: +S1, +S2 - GI/Abdominal Exam GI & Abdominal Exam: Soft. absent: Tenderness Assessment and Plan - Assessment and Plan (Free Text) Plan: Assessment Bilateral lower lobe community-acquired pneumonia with asthmatic bronchitis, slowly improving DM chronic back pain S/P spine surgery HTN dyslipidemia Plan Continue Rocephin and Zithromax (day 4) to complete a 5-7 day course; PCT is 0.23 Patient will continue benefitting from systemic steroids, nebulizer treatments Will continue to monitor clinically
[2016-10-24] MEDS: Albuterol-Ipratrop 3 mg / 0.5 (3 ml) UD IH SCH ×4 (01:50→19:52)
[2016-10-24] MEDS: guaiFENesin DM 100 mg-10 mg/5 ml UD PO PRN (02:06)
[2016-10-24] MEDS: MethylPREDNISolone 40 mg Vial IV SCH ×3 (06:42→21:13)
[2016-10-24] MEDS: Insulin Lispro (humaLOG) MEDIUM Coverage SC SCH ×4 (08:30→23:10)
[2016-10-24] MEDS: Azithromycin 500MG/NS 250ml 500 MG/250 ML BAG IVPB SCH (11:00)
[2016-10-24] MEDS: cefTRIAXone 1 gm 1 GM/100 ML BAG IVPB SCH (11:00)
--- NOTE | 2016-10-24 11:33 | PN ---
DATE: 10/24/2016 DATE: 10/24/2016 SUBJECTIVE: The patient has no complaints of any chest pain, no shortness of breath, no headaches. PHYSICAL EXAMINATION: VITAL SIGNS: Temperature is 98.3. Pulse is 76. Blood pressure is 108/65, respirations 21. GENERAL: The patient is comfortable, in no acute distress. HEENT: Anicteric sclerae. Moist mucosa. NECK: No JVD or adenopathy. CARDIAC: S1/S2. No murmurs. No rubs. Regular. RESPIRATORY: Clear to auscultation bilaterally. No wheezes, rales, or rhonchi. Good air entry. ABDOMEN: Bowel sounds are positive, soft, nontender, and nondistended. EXTREMITIES: No edema. Has 1+ pulses. LABORATORY DATA: White count 11. Hemoglobin is 12. Creatinine is 0.8. ASSESSMENT: 1. Community-acquired pneumonia. 2. Diabetes type 2. 3. Hypertension. 4. Dyslipidemia. 5. Bronchitis. PLAN: The patient is on Cozaar, and continue the patient on Januvia for his diabetes. He is on Lipi tor for dyslipidemia. He is on Norvasc for hypertension. The patient is on Solu-Medrol for his COPD /asthma. He is going to continue his losartan for his hypertension. Aj Diaz MD cc: [id number] TT: 10/24/2016 11:32:59 Confirmation # [id number] Dictation # [id number] [email or web address]
[2016-10-24 17:42] VITALS: RESP 20
[2016-10-24] MEDS: Albuterol-Ipratrop 3 mg / 0.5 (3 ml) UD IH PRN (23:18)
[2016-10-25] MEDS: guaiFENesin DM 100 mg-10 mg/5 ml UD PO PRN ×2 (01:47→21:21)
[2016-10-25] MEDS: Albuterol-Ipratrop 3 mg / 0.5 (3 ml) UD IH SCH ×4 (03:36→19:55)
[2016-10-25] MEDS: MethylPREDNISolone 40 mg Vial IV SCH ×2 (05:56→21:21)
[2016-10-25] MEDS: Insulin Lispro (humaLOG) MEDIUM Coverage SC SCH ×4 (07:30→21:21)
[2016-10-25] MEDS: cefTRIAXone 1 gm 1 GM/100 ML BAG IVPB SCH ×2 (11:05→11:06)
[2016-10-25] MEDS: Azithromycin 500MG/NS 250ml 500 MG/250 ML BAG IVPB SCH (12:16)
--- NOTE | 2016-10-25 12:44 | PN ---
DATE: 10/25/2016 SUBJECTIVE: The patient is 71 years old, seen and examined, doing a lot better, less wheezing, still coughing. PHYSICAL EXAMINATION: VITAL SIGNS: He is afebrile, pulse 80, respirations 20, blood pressure 130/72. LUNGS: Bilateral good airflow. No rhonchi, occasional crackle at the bases. HEART: S1, S2 audible. ABDOMEN: Soft, nontender. No rebound, no guarding. NEUROLOGIC: He is awake and alert, communicative. LABORATORY EXAMINATION: WBC is 11, hemoglobin 12.0, hematocrit 35.3, platelets 179. Chemistry: Sod ium 139, potassium 3.6, chloride 99, CO2 of 25, BUN 19, creatinine 0.8, blood sugar 184. AST 69, ALT 178. ASSESSMENT AND PLAN: 1. Community-acquired pneumonia. 2. Asthmatic bronchitis. 3. Morbid obesity. 4. Insulin-dependent diabetes. 5. Hypertension. PLAN: We will continue the patient on current medical treatment. I will cut down his steroid, parker nue him on IV Rocephin, Singulair. I will cut down prednisone to 30 q. 12, and see the response. If he does not start wheezing, we will make discharge plan, switch medications to p.o., and make a disc harge plan in a.m. Sorin Herzog MD cc: [phone] TT: 10/25/2016 12:43:47 Confirmation # [id number] Dictation # [id number] [email or web address]
[2016-10-26] MEDS: Albuterol-Ipratrop 3 mg / 0.5 (3 ml) UD IH SCH ×2 (01:00→08:06)
[2016-10-26 08:35] VITALS: BP 114/59; PULSE 74; TEMP 98; O2SAT 97
[2016-10-26] MEDS: Insulin Lispro (humaLOG) MEDIUM Coverage SC SCH (08:59)
[2016-10-26] MEDS: Azithromycin 500MG/NS 250ml 500 MG/250 ML BAG IVPB SCH ×2 (10:54→10:55)
[2016-10-26] MEDS: MethylPREDNISolone 40 mg Vial IV SCH (10:57)
--- NOTE | 2016-10-26 16:05 | CP.PCM.PN ---
Subjective - Date & Time of Evaluation Date of Evaluation: 10/26/16 Time of Evaluation: 12:50 - Subjective Subjective: Comfortable in bed, no fevers overnight, breathing better and cough has improved. Objective - Vital Signs/Intake and Output Vital Signs (last 24 hours): Temp Pulse Resp BP Pulse Ox 98 F 74 20 114/59 L 97 10/26/16 08:35 10/26/16 10:51 10/26/16 08:35 10/26/16 10:51 10/26/16 08:35 Intake and Output: 10/26/16 10/26/16 06:59 18:59 Intake Total 900 600 Output Total 1000 400 Balance -100 200 - Labs Labs: 10/23/16 07:03 10/23/16 09:50 PT 9.9 Seconds (9.9-11.8) 10/18/16 13:15 INR 0.92 (0.93-1.08) L 10/18/16 13:15 APTT 38.2 Seconds (23.7-30.8) H 10/18/16 13:15 - Constitutional Appears: Non-toxic, No Acute Distress - Head Exam Head Exam: NORMAL INSPECTION - Respiratory Exam Respiratory Exam: Decreased Breath Sounds - Cardiovascular Exam Cardiovascular Exam: +S1, +S2 - GI/Abdominal Exam GI & Abdominal Exam: Soft. absent: Tenderness Assessment and Plan - Assessment and Plan (Free Text) Plan: Assessment Bilateral lower lobe community-acquired pneumonia with asthmatic bronchitis, clinically improving DM chronic back pain S/P spine surgery HTN dyslipidemia Plan has been on Rocephin and Zithromax (day 7) - can switch to PO Zithromax as an outpatient; PCT is 0.23
--- NOTE | 2016-10-27 11:02 | DS ---
The patient is a 71-year-old, seen and examined, sitting in chair, seems to be comfortable. No chest pain, no shortness of breath. Eating and tolerating. Gets short of breath on walking small distanc e. PHYSICAL EXAMINATION: VITAL SIGNS: He is afebrile, pulse 74, respirations 20, blood pressure 114/59. LUNGS: Bilateral few, occasional expiratory rhonchi, much better than before. HEART: S1, S2 audible. No murmur. ABDOMEN: Soft, nontender, no rebound, no guarding. NEUROLOGIC: He is awake and alert, communicative, ambulatory. ASSESSMENT: 1. Bilateral pneumonia. 2. Non-insulin dependent diabetes. 3. Hypertension. 4. Hyperlipidemia. PLAN: The patient is being discharged home on Zithromax and Ceftin 500 twice a day, Zithromax for 5 more days. He will continue his Advair. He is given prednisone 20 mg twice a day for 3 days, then 2 0 mg daily for 5 days and he is given nebulizer machine and DuoNeb solution to continue and he will f ollow up with Dr. Daniel as outpatient for followup. Sorin Herzog MD cc: [id number] TT: 10/27/2016 11:02:14 en
== END 2016-10-26 15:43 | disposition home or self-care (01) | DRG 190 ==
LOC: ED 12:38 → ERH 15:18 → 3RNO 17:15 → OBSVTOIN 22:36
PROVIDERS: ADMIT Internal Medicine; ATTEND Internal Medicine
DX: J44.0 Chronic obstructive pulmonary disease with (acute) lower respiratory infection (principal); J18.9 Pneumonia, unspecified organism; I10 Essential (primary) hypertension; E11.9 Type 2 diabetes mellitus without complications; E78.5 Hyperlipidemia, unspecified; J45.909 Unspecified asthma, uncomplicated; G89.29 Other chronic pain; M54.9 Dorsalgia, unspecified; Z87.891 Personal history of nicotine dependence; Z79.84 Long term (current) use of oral hypoglycemic drugs; Z88.6 Allergy status to analgesic agent